=== PATIENT | male | born 1985 | race Caucasian/White ===

== ENCOUNTER 2017-07-23 22:45 | Emergency (ER) | payer SELFPAY ==
[2017-07-23] MEDS ORDERED: LORazepam 2 MG/ML SDV IVPUSH ONE (23:39)
[2017-07-23] MEDS ORDERED: Sodium Chloride 0.9% 10 ML Syringe FLUSH PRN (23:39)
[2017-07-23] MEDS ORDERED: methylPREDNISolone Sodium Succinate 125 MG/2 ML SDV IVPUSH ONE (23:39)
[2017-07-23] MEDS ORDERED: Sodium Chloride 0.9% 2.5 ML Syringe FLUSH PRN (23:39)
[2017-07-23] MEDS ORDERED: Ondansetron 4 MG/2 ML SDV IVPUSH ONE (23:39)
[2017-07-23] MEDS ORDERED: Sodium Chloride 0.9% 1,000 ML IV ONE (23:39)
[2017-07-23] MEDS ORDERED: Ketorolac 30 MG/ML SDV IVPUSH ONE (23:39)
[2017-07-23] MEDS ORDERED: diphenhydrAMINE 50 MG/ML SDV IVPUSH ONE (23:39)
--- NOTE | 2017-07-23 23:55 | EDM.PDOC ---
ED HPI GENERAL MEDICAL PROBLEM - General Chief Complaint: Headache Stated Complaint: HEADACHE/NAUSEA Time Seen by Provider: 07/23/17 23:19 - History of Present Illness INITIAL COMMENTS - FREE TEXT/NARRATIVE: HISTORY AND PHYSICAL: History of present illness: Patient is a 32-year-old male with a long-standing history of hypertension which he states is poorly controlled and presents with a right-sided headache that has been constant for the last 1 week. The patient was following in our clinic last year but has since [place] a doctor [place] of [place] and had his blood pressure medication changed and says that he has 2 medications one is carvedilol 12.5 mg twice a day and the second one he does not know the name of both of which were prescribed by a doctor [place] of state. He says that one of his medications he has not taken for several months and the other medication he has not taken for the last 3 days. The patient tells me he has had a long-standing history of headaches which she describes as migraines but he has never seen a headache specialist or neurologist to have that formal diagnosis. The patient says that this headache started gradually about a week ago and it is right- sided and his right ear also hurts. He thought maybe he had some sinus issues and has been taking an [id number] antihistamine which has helped for an hour or 2 after taking it and then it wears off. He's also been using Excedrin Migraine [id number]. The patient says he has had nausea with his headaches which is typical but he has not had any vomiting or diarrhea and no fevers or chills. He has no upper respiratory tract infections and no focal neurologic changes. He has no posterior neck or back pain and denies any recent trauma. 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 The patient tells me that his blood pressure has been poorly controlled for a long time and that the high levels that we are seeing today are not unusual. He says that every time they started him on a medication he seems to have a side effect and then he stops taking them. The patient has not had a visual exam for the last 2 years and does not wear glasses or contacts. He has had no discrete sinus drainage. To clarify about the blood pressure medications the patient says that the medication that he was given, the one he does not recall the name of, is the one that he has not taken for several months. The carvedilol is the medication he has not taken over the last 3 days because he told nursing he felt like it was making his headache worse. Review of systems: As per history of present illness and below otherwise all systems reviewed and negative. Past medical history: As per history of present illness and as reviewed below otherwise noncontributory. Surgical history: As per history of present illness and as reviewed below otherwise noncontributory. Social history: No reported history of drug or alcohol abuse. Family history: As per history of present illness and as reviewed below otherwise noncontributory. Physical exam: General: Well-developed well-nourished man who is speaking clearly in the ED and is somewhat exaggerated initially on my exam but after more conversation he was able to calm down and be more interactive and cooperative. Vital signs are noted by me. HEENT: Atraumatic, normocephalic, pupils reactive, negative for conjunctival pallor or scleral icterus, mucous membranes moist, throat clear, neck supple, nontender, trachea midline. The patient has 1 right anterior cervical lymph node which is mobile and not tender but he has no other adenopathy or nuchal rigidity. The TM on the right is dull but there is no redness and the TM on the left cannot be seen secondary to cerumen impaction. On palpation of the sinuses he does have some right frontal sinus tenderness. The turbinates are only slightly boggy bilaterally and there is clear nasal drainage. Lungs: Clear to auscultation, breath sounds equal bilaterally, chest nontender. Heart: S1S2, regular rate and rhythm no overt murmurs Abdomen: Soft, nondistended, nontender. Negative for masses or hepatosplenomegaly. Negative for costovertebral tenderness. Pelvis: Deferred Genitourinary: Deferred. Rectal: Deferred. Extremities: Atraumatic, negative for cords or calf pain. Neurovascular unremarkable. Neuro: Awake, alert, oriented. Cranial nerves II through XII unremarkable. Cerebellum unremarkable. Motor and sensory unremarkable throughout. Exam nonfocal. Diagnostics: CT scan of the head Therapeutics: IV fluids Zofran Toradol Benadryl Solu-Medrol Ativan clonidine I discussed with the patient has blood pressure and potential management of that. As he does not seem like he is compliant with any of the medications he has at home we will treat his headache symptoms and see if reduction of his headache pain will improve his blood pressure. I have discussed with him that I will not be able to normalize his blood pressure as this would also be detrimental as he likely is running on the higher side per his history on a regular basis. 0125: Patient was found to completely in the ED and I had to wake him up. His blood pressure was 174/105. Patient says this headache is significantly improved and he has no nausea or vomiting. He received 1 dose of clonidine here and his blood pressure is mildly improved. I discussed with him going on clonidine for several days to see if this improves his blood pressure as a trial but that he does need follow-up in our clinic and I will give him the appropriate referrals. I will also give him some tramadol for home as well as some Zofran for nausea. He is aware of his CT scan results and as this is a hypoplastic chronic appearing right maxillary sinus do not feel that he needs antibiotic therapy at this time. He's advised and reasons to return to the ED and need for close follow-up Impression: Right-sided headache improving, poorly controlled hypertension improving Definitive disposition and diagnosis as appropriate pending reevaluation and review of above. headache Pain Score (Numeric/FACES): 0 - Related Data Allergies Allergy/AdvReac Type Severity Reaction Status Date / Time No Known Allergies Allergy Verified 04/28/16 10:41 Home Meds: Home Meds Carvedilol 12.5 mg PO BID 07/23/17 [History] Htn Medication 07/23/17 [History] Past Medical History - Past Health History Medical/Surgical History: Denies Medical/Surgical History Cardiovascular History: Reports: Hypertension Other Cardiovascular History: not been treated Respiratory History: Reports: None Gastrointestinal History: Reports: None Genitourinary History: Reports: None Musculoskeletal History: Reports: None Neurological History: Reports: None, Other (See Below) Other Neuro History: herniated discs x2 Psychiatric History: Reports: None Endocrine/Metabolic History: Reports: None Hematologic History: Reports: None Immunologic History: Reports: None Oncologic (Cancer) History: Reports: None Dermatologic History: Reports: None - Infectious Disease History Infectious Disease History: Reports: Chicken Pox - Past Surgical History Head Surgeries/Procedures: Reports: None HEENT Surgical History: Reports: Oral Surgery, Tonsillectomy Respiratory Surgical History: Reports: None GI Surgical History: Reports: None Male Surgical History: Reports: None Endocrine Surgical History: Reports: None Musculoskeletal Surgical History: Reports: None Oncologic Surgical History: Reports: None Dermatological Surgical History: Reports: None Social & Family History - Family History Family Medical History: Noncontributory - Tobacco Use Smoking Status *Q: Current Every Day Smoker Years of Tobacco use: 15 Packs/Tins Daily: 1 Used Tobacco, but Quit: No Second Hand Smoke Exposure: Yes - Caffeine Use Caffeine Use: Reports: Soda - Alcohol Use Days Per Week of Alcohol Use: 2 Number of Drinks Per Day: 2 Total Drinks Per Week: 4 - Recreational Drug Use Recreational Drug Use: Yes Recreational Drug Type: Reports: Marijuana/Hashish ED ROS GENERAL - Review of Systems Review Of Systems: ROS reveals no pertinent complaints other than HPI. ED EXAM, GENERAL - Physical Exam Exam: See Below (see dictation) Course - Vital Signs Last Recorded V/S: Last Vital Signs Temp 36.7 C 07/23/17 22:56 Pulse 76 07/24/17 00:37 Resp 16 07/24/17 00:07 BP 201/113 H 07/24/17 00:45 Pulse Ox 97 07/24/17 00:37 - Orders/Labs/Meds Orders: Active Orders 24 hr Category Date Time Status Head wo Cont [CT] Stat Exams 07/23/17 23:39 Taken Sodium Chloride 0.9% [Saline Flush] Med 07/23/17 23:39 Active 10 ml FLUSH ASDIRECTED PRN Sodium Chloride 0.9% [Saline Flush] Med 07/23/17 23:39 Active 2.5 ml FLUSH ASDIRECTED PRN Saline Lock Insert [OM.PC] Stat Oth 07/23/17 23:39 Ordered Medication Orders Sodium Chloride (Saline Flush) 10 ml FLUSH ASDIRECTED PRN PRN Reason: Keep Vein Open Sodium Chloride (Saline Flush) 2.5 ml FLUSH ASDIRECTED PRN PRN Reason: Keep Vein Open Meds: Medications Generic Name Dose Route Start Last Admin Trade Name Freq PRN Reason Stop Dose Admin Sodium Chloride 10 ml 07/23/17 23:39 Saline Flush FLUSH ASDIRECTED PRN Keep Vein Open Sodium Chloride 2.5 ml 07/23/17 23:39 Saline Flush FLUSH ASDIRECTED PRN Keep Vein Open Discontinued Medications Generic Name Dose Route Start Last Admin Trade Name Rosa PRN Reason Stop Dose Admin Hydrocodone Bitart/Acetaminophen 1 tab 07/24/17 01:28 [place] 325-5 Mg PO 07/24/17 01:29 ONETIME ONE Clonidine HCl 0.2 mg 07/24/17 00:41 07/24/17 00:45 Catapres PO 07/24/17 00:42 0.2 mg ONETIME ONE Administration Diphenhydramine HCl 50 mg 07/23/17 23:39 07/23/17 23:56 Benadryl IVPUSH 07/23/17 23:40 50 mg ONETIME ONE Administration Sodium Chloride 1,000 mls @ 999 mls/hr 07/23/17 23:39 07/23/17 23:55 Normal Saline IV 07/24/17 00:39 999 mls/hr STAT ONE Administration Ketorolac Tromethamine 30 mg 07/23/17 23:39 07/23/17 23:56 Toradol IVPUSH 07/23/17 23:40 30 mg ONETIME ONE Administration Lorazepam 0.5 mg 07/23/17 23:39 07/23/17 23:55 Ativan IVPUSH 07/23/17 23:40 0.5 mg ONETIME ONE Administration Methylprednisolone Sodium Succinate 125 mg 07/23/17 23:39 07/23/17 23:57 Solu-Medrol IVPUSH 07/23/17 23:40 125 mg ONETIME ONE Administration Ondansetron HCl 4 mg 07/23/17 23:39 07/23/17 23:56 Zofran IVPUSH 07/23/17 23:40 4 mg ONETIME ONE Administration Departure - Departure Time of Disposition: 01:43 Disposition: Home, Self-Care 01 Condition: Good Clinical Impression: Poorly-controlled hypertension Headache Qualifiers: Headache type: unspecified Headache chronicity pattern: acute headache Intractability: not intractable Qualified Code(s): R51 - Headache - Discharge Information Referrals: PCP,None [Primary Care Provider] - Forms: ED Department Discharge Additional Instructions: The following information is given to patients seen in the emergency department who are being discharged to home. This information is to outline your options for follow-up care. We provide all patients seen in our emergency department with a follow-up referral. The need for follow-up, as well as the timing and circumstances, are variable depending upon the specifics of your emergency department visit. If you don't have a primary care physician on staff, we will provide you with a referral. We always advise you to contact your personal physician following an emergency department visit to inform them of the circumstance of the visit and for follow-up with them and/or the need for any referrals to a consulting specialist. The emergency department will also refer you to a specialist when appropriate. This referral assures that you have the opportunity for followup care with a specialist. All of these measure are taken in an effort to provide you with optimal care, which includes your followup. Under all circumstances we always encourage you to contact your private physician who remains a resource for coordinating your care. When calling for followup care, please make the office aware that this follow-up is from your recent emergency room visit. If for any reason you are refused follow-up, please contact the [facility] emergency department at and ask to speak to the emergency department charge nurse. [facility] Primary care- [place] [id number] Please take clonidine as prescribed as a trial for your blood pressure and please look at your diet and start trying to avoid added sodium and salt in your foods that you are choosing. Please rest and avoid work next 24 hours. Please use pain medications as needed and prescribed as well as medications for nausea and vomiting. Please call the clinic at 8 AM today to schedule a follow- up appointment for your blood pressure management as we discussed as the clonidine may need to be adjusted or change her your response. Return to ER as needed and as discussed - My Orders Last 24 Hours: My Active Orders 07/23/17 23:39 Head wo Cont [CT] Stat Sodium Chloride 0.9% [Saline Flush] 10 ml FLUSH ASDIRECTED PRN Sodium Chloride 0.9% [Saline Flush] 2.5 ml FLUSH ASDIRECTED PRN Saline Lock Insert [OM.PC] Stat - Assessment/Plan Last 24 Hours: My Active Orders 07/23/17 23:39 Head wo Cont [CT] Stat Sodium Chloride 0.9% [Saline Flush] 10 ml FLUSH ASDIRECTED PRN Sodium Chloride 0.9% [Saline Flush] 2.5 ml FLUSH ASDIRECTED PRN Saline Lock Insert [OM.PC] Stat
[2017-07-24] MEDS ORDERED: cloNIDine 0.1 MG Tab PO ONE (00:41)
[2017-07-24] MEDS ORDERED: Acetaminophen/HYDROcodone 325-5 MG Tab PO ONE (01:28)
[2017-07-24 01:45] VITALS: BP 150/91
--- NOTE | 2017-07-24 14:35 | CT ---
EXAM DATE: 07/23/17 PATIENT'S AGE: 32 Patient: NORMA CALL Facility: [place], [place] Site . Site : [id number] Study: CT Head WO CONT [id number] 12:40:21 AM Ordering Physician: Sarah Patricia Final Report: INDICATION: Headache for 6 days. TECHNIQUE: Scanning of the head was performed without IV contrast material. Coronal and sagittal reconstructions were obtained. COMPARISON: None. FINDINGS: No acute hemorrhage, parenchymal attenuation abnormality, or mass effect is demonstrated. Differentiation between the burns matter and white matter is preserved. The ventricles and other subarachnoid spaces are within normal limits. No calvarial abnormality is evident. The right maxillary sinus is markedly hypoplastic and completely opacified. The other paranasal sinuses and mastoids are clear. IMPRESSION: 1. Negative noncontrast head CT. 2. 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 Please note that all CT scans at this facility use dose modulation, iterative reconstruction, and/or weight-based dosing when appropriate to reduce radiation dose to as low as reasonably achievable. Dictated by Hernesto Weinberg MD @ Jul 24 2017 1:13AM (Electronic Signature) Report Signed by Proxy. ALANA
== END 2017-07-24 01:59 | disposition home or self-care (01) ==
LOC: MW.ED 22:45
DX: I10 Essential (primary) hypertension (principal); F17.210 Nicotine dependence, cigarettes, uncomplicated; Z79.899 Other long term (current) drug therapy
CPT/HCPCS: 70450; 96361; 96374; 96375; 99283; A9270; J1200; J1885; J2060; J2405; J2930; J7040

== ENCOUNTER 2019-03-30 23:41 | Emergency (ER) | payer OTHER ==
[2019-03-30] MEDS ORDERED: Sodium Chloride 0.9% 10 ML Syringe FLUSH PRN (23:58)
[2019-03-30] MEDS ORDERED: Sodium Chloride 0.9% 2.5 ML Syringe FLUSH PRN (23:58)
[2019-03-30] MEDS ORDERED: Sodium Chloride 0.9% 1,000 ML IV ONE (23:58)
[2019-03-31] MEDS ORDERED: Morphine 4 MG/ML Syringe ONE (00:12)
[2019-03-31] MEDS ORDERED: Ondansetron 4 MG/2 ML SDV ONE (00:12)
[2019-03-31] MEDS ORDERED: Morphine 4 MG/ML Syringe IVPUSH ONE ×2 (00:14→00:47)
[2019-03-31] MEDS ORDERED: Ondansetron 4 MG/2 ML SDV IVPUSH ONE (00:14)
[2019-03-31 00:28] LABS: BLOOD UREA NITROGEN,BUN 21 mg/dL (7.0-18.0); CARBON DIOXIDE,CO2 23.8 mmol/L (21.0-32.0); CHLORIDE,CL 105 mmol/L (98-107); GLUCOSE RANDOM 114 mg/dL (74-106); SODIUM,NA 140 mmol/L (136-148)
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
[2019-03-31] MEDS ORDERED: Iopamidol 755 Mg/ML 100 ML Bottle IVPUSH ONE (01:03)
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
[2019-03-31] MEDS ORDERED: hydrALAZINE 20 MG/ML SDV IVPUSH ONE (01:48)
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
[2019-03-31] MEDS ORDERED: HYDROmorphone 1 MG/ML Syringe IVPUSH ONE ×2 (01:52→02:43)
[2019-03-31 02:01] VITALS: BP 187/129; PULSE 79
[2019-03-31] MEDS ORDERED: Lactated Ringers 1,000 ML IV SCH (02:15)
== END 2019-03-31 03:00 ==
LOC: MW.ED 23:41
DX: S00.83XA Contusion of other part of head, initial encounter (principal); S40.811A Abrasion of right upper arm, initial encounter; S80.812A Abrasion, left lower leg, initial encounter; R07.81 Pleurodynia; I10 Essential (primary) hypertension; F17.210 Nicotine dependence, cigarettes, uncomplicated; Z79.899 Other long term (current) drug therapy; V49.50XA Passenger injured in collision with unspecified motor vehicles in traffic accident, initial encounter; Y92.410 Unspecified street and highway as the place of occurrence of the external cause
CPT/HCPCS: 36415; 70450; 71045; 71260; 72125; 72128; 72131; 74177; 80053; 80305; 81003; 84484; 85025; 85610; 93005; 96361; 96374; 96375; 96376; 99285; J0360; J1170; J2270; J2405; J7030; J7120; Q9967; 99284

== ENCOUNTER 2019-04-18 11:40 | Emergency (ER) | payer SELFPAY ==
[2019-04-18 13:12] VITALS: BP 143/104; PULSE 76
--- NOTE | 2019-04-18 13:21 | CR ---
Chest: 2 views of the chest were obtained. Comparison: Previous chest CT of 03/31/19 and chest x-ray of 03/31/19. Moderately large left sided pleural effusion is seen. This has increased in amount from prior exam. More consolidation is also noted within the left lung base. Displaced fracture is noted within the left seventh rib. Other rib fractures that were seen on chest CT are poorly identified on this plain film study. Right lung is clear. Heart size and mediastinum are normal. Impression: 1. Displaced left seventh rib fracture. Other fractures that were seen on prior CT study are poorly seen on this exam. 2. Increasing left-sided pleural effusion as well as increasing consolidation within the left lung base most likely due to increasing atelectasis. Diagnostic code #3 This report was dictated in [place] Standard Time
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
== END 2019-04-18 14:25 | disposition left against medical advice (07) ==
LOC: MW.ED 11:40
DX: R07.9 Chest pain, unspecified (principal); R45.851 Suicidal ideations; I10 Essential (primary) hypertension; F17.210 Nicotine dependence, cigarettes, uncomplicated
CPT/HCPCS: 71046; 71046-26; 99284-25; 99285

== ENCOUNTER 2020-09-17 01:07 | Emergency (ER) | payer SELFPAY ==
[2020-09-17 01:24] VITALS: BP 185/101; PULSE 89
[2020-09-17] MEDS ORDERED: Sulfamethoxazole/Trimethoprim 800-160 MG Tab PO ONE (01:34)
[2020-09-17] MEDS ORDERED: Lidocaine 2% 5 ML SDV INJECT ONE (01:34)
[2020-09-17] MEDS ORDERED: Cephalexin 500 MG Cap PO ONE (01:34)
--- NOTE | 2020-09-17 01:37 | EDM.PDOC ---
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 Patient has been it for the past few days is get bigger in size and has some small drainage. Patient denies any fever chills nausea vomiting or other symptoms. right glute Pain Score (Numeric/FACES): 8 - Related Data Allergies Allergy/AdvReac Type Severity Reaction Status Date / Time No Known Allergies Allergy Verified 09/17/20 01:24 Home Meds: Home Meds lisinopriL [Lisinopril] 10 mg PO DAILY 09/17/20 [History] Past Medical History - Past Health History Medical/Surgical History: Denies Medical/Surgical History Cardiovascular History: Reports: Hypertension Other Cardiovascular History: Currently not medicated per patinet's desire Respiratory History: Reports: None Gastrointestinal History: Reports: None Genitourinary History: Reports: None Musculoskeletal History: Reports: None Neurological History: Reports: Other (See Below) Other Neuro History: herniated discs x2 Psychiatric History: Reports: None Endocrine/Metabolic History: Reports: None Hematologic History: Reports: None Immunologic History: Reports: None Oncologic (Cancer) History: Reports: None Dermatologic History: Reports: None - Infectious Disease History Infectious Disease History: Reports: Chicken Pox - Past Surgical History Head Surgeries/Procedures: Reports: None HEENT Surgical History: Reports: Oral Surgery, Tonsillectomy Respiratory Surgical History: Reports: None GI Surgical History: Reports: None Male Surgical History: Reports: None Endocrine Surgical History: Reports: None Neurological Surgical History: Reports: None Musculoskeletal Surgical History: Reports: None Oncologic Surgical History: Reports: None Dermatological Surgical History: Reports: None Social & Family History - Family History Family Medical History: No Pertinent Family History - Tobacco Use Packs/Tins Daily: 1 - Caffeine Use Caffeine Use: Reports: Coffee, Energy Drinks - Recreational Drug Use Recreational Drug Use: Yes Recreational Drug Type: Reports: Marijuana/Hashish Recreational Drug Use Frequency: Daily ED ROS GENERAL - Review of Systems Review Of Systems: See Below Constitutional: Reports: No Symptoms HEENT: Reports: No Symptoms Respiratory: Reports: No Symptoms Cardiovascular: Reports: No Symptoms Endocrine: Reports: No Symptoms GI/Abdominal: Reports: No Symptoms : Reports: No Symptoms Musculoskeletal: Reports: No Symptoms Skin: Reports: Other (abscess) Neurological: Reports: No Symptoms Psychiatric: Reports: No Symptoms Hematologic/Lymphatic: Reports: No Symptoms Immunologic: Reports: No Symptoms ED EXAM, SKIN/RASH Exam: See Below Exam Limited By: No Limitations General Appearance: Alert, WD/WN, No Apparent Distress Respiratory/Chest: No Respiratory Distress, Lungs Clear, Normal Breath Sounds Cardiovascular: Normal Peripheral Pulses, Regular Rate, Rhythm GI/Abdominal: Normal Bowel Sounds, Soft, Non-Tender Extremities: Other (abscess posterior right upper thigh) Neurological: Alert, Oriented ED SKIN PROCEDURES - I&D Site: under right guteal Skin Prep: Isopropyl Alcohol (Alcohol) Local Anesthesia: Lidocaine: 1% Plain Local Anesthetic Volume: 2cc Area Incised With: 11 Blade Drainage: Purulent Probed to Break Up Loculations: Yes Packed With: 1 in. Iodoform Sterile Dressinx4(s) Complications: No Course - Vital Signs Last Recorded V/S: Last Vital Signs Temp 97.9 F 09/17/20 01:21 Pulse 89 09/17/20 01:21 Resp 16 09/17/20 01:21 BP 185/101 H 09/17/20 01:21 Pulse Ox 96 09/17/20 01:21 - Orders/Labs/Meds Meds: Medications Discontinued Medications Generic Name Dose Route Start Last Admin Trade Name Yashq PRN Reason Stop Dose Admin Cephalexin 500 mg 09/17/20 01:34 Cephalexin 500 Mg Cap PO 09/17/20 01:35 ONETIME ONE Lidocaine 5 ml 09/17/20 01:34 Lidocaine 2% 5 Ml Sdv INJECT 09/17/20 01:35 ONETIME ONE Lidocaine HCl Confirm 09/17/20 01:44 Lidocaine 1% 5 Ml Sdv Administered 09/17/20 01:45 Dose 5 ml .ROUTE .STK-MED ONE Trimethoprim/Sulfamethoxazole 1 tab 09/17/20 01:34 Sulfamethoxazole/Trimethoprim 800-160 Mg Tab PO 09/17/20 01:35 ONETIME ONE Departure - Departure Time of Disposition: 02:13 Disposition: Home, Self-Care 01 Condition: Good Clinical Impression: Abscess - Discharge Information *PRESCRIPTION DRUG MONITORING PROGRAM REVIEWED*: Not Applicable *COPY OF PRESCRIPTION DRUG MONITORING REPORT IN PATIENT TYRA: Not Applicable Instructions: Skin Abscess, [id number] Referrals: PCP,None [Primary Care Provider] - Forms: ED Department Discharge Additional Instructions: The following information is given to patients seen in the emergency department who are being discharged to home. This information is to outline your options for follow-up care. We provide all patients seen in our emergency department with a follow-up referral. The need for follow-up, as well as the timing and circumstances, are variable depending upon the specifics of your emergency department visit. If you don't have a primary care physician on staff, we will provide you with a referral. We always advise you to contact your personal physician following an emergency department visit to inform them of the circumstance of the visit and for follow-up with them and/or the need for any referrals to a consulting specialist. The emergency department will also refer you to a specialist when appropriate. This referral assures that you have the opportunity for follow-up care with a specialist. All of these measure are taken in an effort to provide you with optimal care, which includes your follow-up. Under all circumstances we always encourage you to contact your private physician who remains a resource for coordinating your care. When calling for follow-up care, please make the office aware that this follow-up is from your recent emergency room visit. If for any reason you are refused follow-up, please contact the [facility] Emergency Department at and asked to speak to the emergency department charge nurse. Please follow up with your primary care physician. If you do not have a primary care physician, see below: [facility] [address] [place] [id number] [facility] [address] [place] [id number] You are seen today for a abscess on your right gluteal. We were able to put a small hole and drain a good amount of pus out. We will send home antibiotics. We also put some packing in there to help assist with the drainage. The packing comes adenopathy back in. Please keep wound area of the area becomes more swollen more painful or redder please return to the ED immediately otherwise follow-up with primary care physician. Sepsis Event Note (ED) - Evaluation Sepsis Screening Result: No Definite Risk - Focused Exam Vital Signs: Vital Signs Temp Pulse Resp BP Pulse Ox 09/17/20 01:21 97.9 F 89 16 185/101 H 96 - Assessment/Plan Plan: Patient is a 35-year-old male presents today with abscess to the right upper posterior thigh large in size we will I&D put on Keflex Bactrim.
== END 2020-09-17 02:33 | disposition home or self-care (01) ==
LOC: MW.ED 01:07
DX: L02.31 Cutaneous abscess of buttock (principal); I10 Essential (primary) hypertension; Z72.0 Tobacco use; Z79.899 Other long term (current) drug therapy
CPT/HCPCS: 10060; 99282; A9270; 99283